=== PATIENT | female | born 1975 | race Caucasian/White ===

== ENCOUNTER 2023-08-03 15:20 | Inpatient (IN) | payer OTHER ==
[~2023-08-03] VITALS: Ht 157.5 cm; Wt 65.8 kg
[2023-08-03 15:27] VITALS: BP 128/78; PULSE 103; RESP 18; TEMP 97.7; O2SAT 100
[2023-08-03 18:56] LABS: BASOPHILS # (AUTO) 0.1 K/uL (0.00-0.22); BASOPHILS % (AUTO) 1.1 % (0.0-2.0); EOSINOPHILS # (AUTO) 0.3 K/uL (0-0.4); EOSINOPHILS % (AUTO) 3.9 % (0.0-4.0); HEMATOCRIT 38.9 % (36-48); HEMOGLOBIN 13.1 g/dL (12.0-16.0); LYMPHOCYTES % (AUTO) 25.8 % (20.5-51.1); MEAN CORPUSCULAR HEMOGLOBIN 28 pg (27-31); MEAN CORPUSCULAR HGB CONC 34 g/dL (33-37); MEAN CORPUSCULAR VOLUME 82.6 fL (80-94); MONOCYTES # (AUTO) 0.6 K/uL (0.8-1.0); MONOCYTES % (AUTO) 7.5 % (1.7-9.3); NEUTROPHILS # (AUTO) 4.9 K/uL (1.8-7.7); NEUTROPHILS % (AUTO) 61.7 % (42.2-75.2); PLATELET COUNT (AUTO) 312 K/uL (140-450); RED BLOOD CELL COUNT(AUTO) 4.71 MIL/uL (4.20-5.40); WHITE BLOOD COUNT (AUTO) 7.9 K/uL (4.8-10.8)
[2023-08-03 19:06] LABS: ANION GAP 14.6 (8-16); CALCIUM 9.2 mg/dL (8.5-10.1); CARBON DIOXIDE 24.2 mmol/L (21-32); CREATININE 0.7 mg/dL (0.6-1.3); POTASSIUM 3.8 mmol/L (3.5-5.1)
[2023-08-03] MEDS: KETOROLAC 30 MG/ML VIAL IVP ONE (19:33)
[2023-08-03] MEDS: NACL 0.9% 1,000 ML IV ONE (20:50)
[2023-08-04] MEDS ORDERED: ACETAMINOPHEN 325 MG TAB PO PRN (04:40)
[2023-08-04] MEDS ORDERED: HYDROcodone/APAP 5/325 MG 1 TAB TAB PO PRN (04:40)
[2023-08-04] MEDS ORDERED: KCL 20 MEQ IN 100 mL PREMIX 200 ML IV PRN (04:40)
[2023-08-04] MEDS ORDERED: MAGNESIUM OXIDE 400 MG TAB PO PRN (04:40)
[2023-08-04] MEDS ORDERED: POTASSIUM CHLORIDE 10 MEQ TABER PO PRN (04:40)
[2023-08-04] MEDS ORDERED: MORPHINE SULFATE 4 MG/ML SYR IVP PRN (04:40)
[2023-08-04] MEDS ORDERED: cefTRIAXone 1,000 MG VIAL ONE (05:19)
[2023-08-04] MEDS: NACL 0.9% 1,000 ML IV SCH (05:29)
[2023-08-04 06:20] VITALS: BP 117/70; PULSE 78; RESP 18; TEMP 97.1; O2SAT 98
[2023-08-04] MEDS: metroNIDAZOLE 500 MG/NS PREMIX 100 ML IV SCH (06:23)
[2023-08-04 07:30] VITALS: BP 115/68; PULSE 74; PULSE 79; RESP 18; TEMP 98.3; O2SAT 98
[2023-08-04] MEDS: ENOXAPARIN 40 MG/0.4 ML SYR SUBQ SCH (09:00)
[2023-08-04 10:12] LABS: BILIRUBIN,DIRECT 0.1 mg/dL (0.0-0.3); TOTAL BILIRUBIN 0.3 mg/dL (0.0-1.0)
[2023-08-04 16:00] VITALS: BP 123/67; PULSE 88; RESP 18; TEMP 99.1; O2SAT 100
[2023-08-04 20:00] VITALS: BP 114/74; PULSE 81; RESP 18; TEMP 98.6; O2SAT 96; O2SAT 98
[2023-08-04 21:33] LABS: APPEARANCE,URINE CLEAR (CLEAR); BILIRUBIN,URINE NEGATIVE (NEGATIVE); BLOOD, URINE NEGATIVE (NEGATIVE); COLOR,URINE YELLOW (YELLOW); LEUKOCYTE ESTERASE ,URINE NEGATIVE (NEGATIVE); NITRITE, URINE NEGATIVE (NEGATIVE); PROTEIN,URINE NEGATIVE (NEGATIVE); UGLUCOSE NEGATIVE (NEGATIVE); UROBILINOGEN,URINE 0.2 EU/dL (0.2 - 1)
[2023-08-05 06:32] LABS: BASOPHILS % (AUTO) 0.2 % (0.0-2.0); EOSINOPHILS # (AUTO) 0.3 K/uL (0-0.4); EOSINOPHILS % (AUTO) 5.3 % (0.0-4.0); HEMATOCRIT 35.7 % (36-48); HEMOGLOBIN 11.8 g/dL (12.0-16.0); LYMPHOCYTES # (AUTO) 1.3 K/uL (2.5-16.5); LYMPHOCYTES % (AUTO) 26.1 % (20.5-51.1); MEAN CORPUSCULAR HEMOGLOBIN 28 pg (27-31); MEAN CORPUSCULAR HGB CONC 33 g/dL (33-37); MEAN CORPUSCULAR VOLUME 83.1 fL (80-94); MONOCYTES # (AUTO) 0.4 K/uL (0.8-1.0); MONOCYTES % (AUTO) 7.3 % (1.7-9.3); NEUTROPHILS # (AUTO) 3.1 K/uL (1.8-7.7); NEUTROPHILS % (AUTO) 61.1 % (42.2-75.2); PLATELET COUNT (AUTO) 281 K/uL (140-450); RED BLOOD CELL COUNT(AUTO) 4.29 MIL/uL (4.20-5.40); RED CELL DISTRIBUTION WIDTH 15.7 % (11.6-13.7); WHITE BLOOD COUNT (AUTO) 5.1 K/uL (4.8-10.8)
[2023-08-05 06:53] LABS: ALBUMIN 2.7 g/dL (3.4-5.0); ANION GAP 11.1 (8-16); CARBON DIOXIDE 22.6 mmol/L (21-32); CREATININE 0.5 mg/dL (0.6-1.3); POTASSIUM 3.7 mmol/L (3.5-5.1); TOTAL BILIRUBIN 0.2 mg/dL (0.0-1.0); TOTAL PROTEIN, SERUM 6.4 g/dL (6.4-8.2)
[2023-08-05 08:00] VITALS: BP 115/72; PULSE 77; PULSE 81; RESP 17; RESP 18; TEMP 96.9; O2SAT 96
[2023-08-05] MEDS ORDERED: SEVOFLURANE 250 ML BTL INH ONE (09:00)
[2023-08-05] MEDS: DEXAMETHASONE 4 MG/ML VIAL ONE (09:26)
[2023-08-05] MEDS: PROPOFOL 200 MG/20 ML VIAL IV ONE (09:26)
[2023-08-05] MEDS: LIDOCAINE MPF 2% 100 MG/5 ML VIAL INJ ONE (09:26)
[2023-08-05] MEDS: SUCCINYLCHOLINE CHLORIDE 200 MG/10 ML VIAL IVP ONE (09:26)
[2023-08-05] MEDS: fentaNYL citrate 0.05 MG/ML VIAL ONE (09:28)
[2023-08-05] MEDS: ROCURONIUM 50 MG/5 ML VIAL IV ONE (09:29)
[2023-08-05] MEDS: LIDOCAINE/EPI 1% 1:100000 20 ML VIAL INJ ONE (09:55)
[2023-08-05] MEDS: BUPIVACAINE-MPF 0.25% 30 ML VIAL INJ ONE (09:55)
[2023-08-05] MEDS ORDERED: ACET-8905 PO (10:48)
[2023-08-05] MEDS: KETOROLAC 30 MG/ML VIAL ONE ×2 (10:53→10:55)
[2023-08-05] MEDS: LACTATED RINGERS 1,000 ML IV SCH (10:55)
[2023-08-05] MEDS ORDERED: KETOROLAC 30 MG/ML VIAL IM SCH (10:55)
[2023-08-05] MEDS ORDERED: ONDANSETRON 4 MG/2 ML VIAL IVP PRN (10:55)
[2023-08-05] MEDS: HYDROmorphone 1 MG/ML AMP IVP PRN (11:10)
[2023-08-05] MEDS: HYDROmorphone PFS 2 MG/ML SYR ONE (11:11)
[2023-08-05 16:00] VITALS: BP 126/84; PULSE 75; RESP 17; TEMP 98.6; O2SAT 96
[2023-08-05] MEDS ORDERED: LOV40I SUBQ ×2 (17:11→17:27)
[2023-08-05 17:48] VITALS: BP 126/84; PULSE 75; RESP 17; TEMP 98.6
== END 2023-08-05 18:45 | disposition home or self-care (01) | DRG 263 ==
LOC: MED 15:20 → MTU 08-04 04:41 → OBSVTOIN 08-05 09:59
PROVIDERS: ADMIT Hospitalist; ATTEND Hospitalist
PROC: 0DNU4ZZ Release Omentum, Percutaneous Endoscopic Approach (ICD-10-PCS; 2023-08-05)
PROC: 0FT44ZZ Resection of Gallbladder, Percutaneous Endoscopic Approach (ICD-10-PCS; principal; 2023-08-05 17:30)
DX: K80.60 Calculus of gallbladder and bile duct with cholecystitis, unspecified, without obstruction (principal); D68.51 Activated protein C resistance; Z79.899 Other long term (current) drug therapy
CPT/HCPCS: 96374; 99285; G0378; 36415; 71045; 71275; 76705; 78445; 80048; 80053; 80076; 81003; 81025; 85025; 85379; 86886; 86900; 86901; 87081; 88304; 93005; A9510; J0330; J0696; J1100; J1170; J1650; J1885; J2001; J2704; J3010; J3490; J7030; J7060; J7120; Q0092; Q9967